=== PATIENT | female | born 2000 | race Caucasian/White ===

== ENCOUNTER 2020-07-26 16:07 | Emergency (ER) | payer SELFPAY ==
--- NOTE | 2020-07-26 16:12 | ED.PDOC ---
History of Present Illness - General Time Seen by Provider: 07/26/20 16:08 Source: patient, RN notes reviewed, Vital Signs reviewed Exam Limitations: no limitations - History of Present Illness Comments: 20 yo cough x 3 days, loss taste and smell today. + covid exposure, bf diagnosed 2 days ago. Denies shortness of breath, n/v/d. + subjective fever. + body aches. no sore throat. Allergies/Adverse Reactions: Allergies NO KNOWN ALLERGY Allergy (Verified 07/26/20 16:19) Home Medications: Ambulatory Orders NK 07/26/20 Review of Systems - Review of Systems Constitutional: States: fever. Denies: chills, malaise EENTM: States: see HPI. Denies: blurred vision, throat pain, throat swelling, mouth pain Respiratory: States: cough. Denies: short of breath, stridor Cardiology: Denies: chest pain, palpitations, syncope Gastrointestinal/Abdominal: Denies: abdominal pain, diarrhea, nausea, vomiting Genitourinary: Denies: discharge, frequency, hematuria Musculoskeletal: Denies: joint pain, muscle pain, muscle stiffness, neck pain Skin: Denies: change in color, dryness, rash, other Neurological: Denies: headache, numbness, paresthesia, tremors Hematologic/Lymphatic: Denies: easy bleeding, easy bruising Past Medical History (General) - Patient Medical History Hx Seizures: No Hx Stroke: No Hx Dementia: No Hx Asthma: No Hx of COPD: No Hx Cardiac Disorders: No Hx Congestive Heart Failure: No Hx Pacemaker: No Hx Hypertension: No Hx Thyroid Disease: No Hx Diabetes: No Hx Gastroesophageal Reflux: No Hx Renal Disease: No Hx Cancer: No Hx of HIV: No Hx Hepatitis B: No Hx Hepatitis C: No Hx MRSA: No Hx Other PMH: No Family Medical History - Family History Mother Family History: Unknown Living Status: Unknown Physical Exam - Physical Exam General Appearance: Alert, Comfortable, No apparent distress, Well Developed, Well Groomed, Well Hydrated, Well Nourished Eye Exam: bilateral normal ENT Exam: normal ENT inspection, hearing grossly normal, TMs normal Neck: non-tender, full range of motion, supple, normal inspection, trachea midline Respiratory: chest non-tender, lungs clear, normal breath sounds, no respiratory distress, no accessory muscle use Cardiovascular/Chest: normal peripheral pulses, regular rate, rhythm, no edema, no gallop, no JVD, no murmur Gastrointestinal/Abdominal: normal bowel sounds, non tender, soft, no organomegaly, no pulsatile mass Extremity: normal range of motion, non-tender, normal inspection, no pedal edema, no calf tenderness, normal capillary refill 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 The history and assessments from nurses notes were reviewed and considered. My assessment and the results of testing completed here in the ED were discussed with the patient. All questions were answered, and she express understanding of my assessment and the plan. she has been instructed to return if their symptoms worsen, and have been asked to follow up with their primary care physician to recheck today's presenting complaint. Strict return precautions given. Janessa Jama DO #[id number] - EKG/XRAY/CT XRAY: chest - no acute cardiopulmonary pathology Departure - Departure Clinical Impression: Upper respiratory infection Qualifiers: URI type: unspecified viral URI Qualified Code(s): J06.9 - Acute upper respiratory infection, unspecified ICD-10 Supporting Text: COVID exposure Time of Disposition: 16:43 Disposition: Discharge to Home or Self Care Instructions: Cough, Adult (DC) Home Medications: Ambulatory Orders NK 07/26/20
[2020-07-26 16:19] VITALS: TEMP 97.8
--- NOTE | 2020-07-26 16:43 | RAD ---
EXAM DESCRIPTION: Chest,1 View CLINICAL HISTORY: 20 years Female covid COMPARISON: None TECHNIQUE: Portable AP view of the chest is obtained. FINDINGS IN THE CHEST: Heart: Allowing for magnification factors related to AP portable technique and body habitus, the heart is normal in size and configuration. Vasculature: [] There is no evidence of aortic aneurysm or acute findings. The pulmonary vascularity is normal. Mediastinum: No evidence of mass or adenopathy. Lungs: There is no focal consolidation in the lungs. Pleura: There are no pleural effusions. There are no pneumothoraces. Osseous structures: No evidence of acute fracture, osteolytic lesions or osteoblastic lesions. Tubes and catheters: None Chest wall: Unremarkable. Visualized Abdomen: Unremarkable. IMPRESSION: No significant [] radiographic abnormalities in the chest. Remainder of findings as described above. Electronically signed by: Katja Ramirez MD 07/26/2020 4:41 PM CDT
[2020-07-26 17:05] VITALS: BP 119/81; O2SAT 98
== END 2020-07-26 17:02 | disposition home or self-care (01) ==
LOC: ER 16:07
DX: U07.1 COVID-19 (principal); J06.9 Acute upper respiratory infection, unspecified; Z20.828 Contact with and (suspected) exposure to other viral communicable diseases